=== PATIENT | female | born 1930 | race Caucasian/White ===

== ENCOUNTER 2016-12-03 23:46 | Inpatient (IN) | payer OTHER ==
--- NOTE | ~2016-12-03 | PRECARD ---
H&P [facility] [address] [place]. [address] NAME: TEODORA ALMAGUER : 34 STATUS : ADM IN [facility]#: [id number] AGE: 86 ADM/REG DATE : 12/03/16 MR#: [id number] REPORT SERV DATE: 12/04/16 DICTATED BY: MARANDA RUSSELL DATE: 12/04/16 REPORT STATUS : Draft TRANSCRIBED BY: MODKaiser DATE: 12/04/16 DATE OF ADMISSION: 12/03/2016 CARDIOLOGY ADMISSION NOTE CHIEF COMPLAINT: Chest pain. REASON FOR ADMISSION: Myocardial infarction. SOURCE: Patient and chart. HISTORY OF PRESENT ILLNESS: Ms. Almaguer is a very pleasant 86-year-old white woman with no significant past cardiac history. She was in her usual state of health until last night about 10 p.m. when she was watching TV and she developed chest pain described as a heavy burning sensation radiating to both arms, up to 10/10 in severity. She never had anything like it before. It was associated with nausea, diaphoresis, and shortness of breath, but no vomiting. She came to [facility] ER where she sustained VF arrest x2 and was promptly defibrillated. Following that, she was awake and alert. REVIEW OF SYSTEMS: All other systems are negative. ALLERGIES: DEMEROL. MEDICATIONS AT HOME: She has a list, but cannot remember them. CARDIAC RISK FACTORS: Hypertension, former tobacco. Denies diabetes, cholesterol, or family history. SOCIAL HISTORY: The patient lives in [place], [place]. She is . She has 3 children, alive and well. She is retired. FAMILY HISTORY: Negative for coronary artery disease at young age. PAST MEDICAL HISTORY: Significant for no prior heart disease, history of bleeding ulcer, history of asthma, status post tonsillectomy, status post appendectomy, status post hysterectomy, status post bilateral tubal ligation, a "kidney tie up" when her ureter was stretched during , status post right total knee replacement, status post gallbladder surgery, status post cataract surgery. PHYSICAL EXAMINATION: GENERAL: She is a well-developed, well-nourished, elderly white woman, in no acute distress. VITAL SIGNS: Stable. Afebrile. HEENT: Sclerae anicteric. Lips without cyanosis. Carotids 2+ and symmetrical. No JVD. No thyromegaly. H&P [facility] [address] [facility] [place]. [address] NAME: TEODORA ALMAGUER : 34 STATUS : ADM IN [facility]#: [id number] AGE: 86 ADM/REG DATE : 12/03/16 MR#: [id number] REPORT SERV DATE: 12/04/16 DICTATED BY: MARANDA RUSSELL DATE: 12/04/16 REPORT STATUS : Draft TRANSCRIBED BY: UMA DATE: 12/04/16 LUNGS: Clear to auscultation. No use of accessory muscles. HEART: Regular rate and rhythm without murmur, gallop, or rub. ABDOMEN: Positive bowel sounds. Soft, nontender. Healed surgical scars. EXTREMITIES: Pulses 2+ and symmetrical. No cyanosis or clubbing. Puffy legs. No pitting edema. BACK: No CVA tenderness. MUSCULOSKELETAL: Good tone. NEUROLOGIC: Alert and oriented x3. LABORATORY DATA: EKG reveals acute inferior TN, evidence of VF arrest. Labs are not yet available. IMPRESSION: 1. Acute inferior myocardial infarction, onset 10 p.m., by history, Killip class I. 2. Status post ventricular fibrillation arrest x2 in the ER. 3. Hypertension. 4. Former tobacco. RECOMMENDATIONS: 1. Emergent cardiac catheterization and angioplasty already done; see report. 2. IV amiodarone bolus. 3. Electrolyte replacement protocol complete database. 4. Aspirin, heparin already given. 5. Beta blockers and MADDY inhibitors. 6. Check fasting lipid profile. Empiric statin therapy. KIM/UMA Maranda Russell M.D. / [id number] CC: Thiago Brothers M.D.
--- NOTE | ~2016-12-03 | DS ---
Discharge Summary [facility] [address] [place]. [address] NAME: TEODORA CONTE : 34 STATUS : DIS IN PAT#: [id number] AGE: 86 ADM/REG DATE : 12/03/16 MR#: [id number] REPORT SERV DATE: 12/19/16 DICTATED BY: MARANDA RUSSELL DATE: 12/18/16 REPORT STATUS : Draft TRANSCRIBED BY: UMA DATE: 12/18/16 Data Collection from hospitalization DISCHARGE DIAGNOSES: 1. Inferior myocardial infarction-acute. 2. Mildly decreased left ventricular systolic function. 3. Status post ventricular fibrillation arrest. 4. Dyspnea. 5. History of chronic obstructive pulmonary disease. 6. Hypertension. 7. History of bleeding ulcer. 8. Coronary artery disease. 9. [id number] smoking history. CONSULTATION: Dr. Sendy Herrera. PROCEDURES PERFORMED: Cardiac catheterization and percutaneous coronary intervention, 12/04/2016. DISCHARGE MEDICATIONS: Halfprin 81 mg daily, Lipitor 40 mg at bedtime, Maximum D3 one capsule on Sundays as instructed, hydrochlorothiazide 12.5 mg daily, Singulair one tablet daily, Lopressor 25 mg twice a day, Zoloft 100 mg every morning, Spiriva one capsule via HandiHaler daily, Brilinta 90 mg every 12 hours, Diovan 320 mg every morning, ProAir one puff via inhaler every four hours as needed, Ativan 1 mg twice a day as needed, Lead 10/325 one tablet every six hours as needed, Cartia XT 180 mg daily, sleep aid [id number] one tablet at bedtime. CONDITION AT DISCHARGE: Stable. DISPOSITION: The patient was discharged to [facility] with diet and activities as instructed. She would follow up with me, 01/02/2017. HOSPITAL COURSE: This is an 86-year-old female, who has no significant past cardiac history. She had been in her usual state of health until around 10 p.m. on the night prior to this admission, when she was watching TV and developed chest pain, described as a heavy burning sensation, radiating to both arms that was up to 10/10 in severity. She had never had anything like this before. It was associated with nausea, diaphoresis, and shortness of breath, but no vomiting. She came to the [facility] emergency room, where she sustained ventricular fibrillation arrest x2 and was promptly defibrillated. She was admitted to the hospital at this time for further evaluation and treatment. Upon admission, her EKG revealed acute inferior myocardial infarction and evidence of ventricular fibrillation arrest. IV amiodarone bolus was given. She was placed on electrolyte replacement protocol. She was taken emergently to the cardiac medical lab assistant, where she underwent the above-mentioned procedure. She tolerated this well and there were no complications. The following day, she was up sitting in a chair. She was feeling okay. She had no chest pain, shortness of breath, or palpitations. She did have some sternal soreness at the defibrillation site. She was in a sinus rhythm. We encouraged her to Discharge Summary [address] [place]. [address] NAME: TEODORA CONTE : 34 STATUS : DIS IN PAT#: [id number] AGE: 86 ADM/REG DATE : 12/03/16 MR#: [id number] REPORT SERV DATE: 12/19/16 DICTATED BY: MARANDA RUSSELL DATE: 12/18/16 REPORT STATUS : Draft TRANSCRIBED BY: UMA DATE: 12/18/16 increase her activity. She was transferred to telemetry. O2 was discontinued. Blood pressure was under good control. Statin therapy continued. EKG revealed normal sinus rhythm with occasional PVCs. On the , she had not gotten out of the bed much over the last 24 hours, except to go to the bathroom. She said she felt weak. She had some shortness of breath and wheezing. Her chest wall was sore at the defibrillation site. She was in a sinus rhythm with PVCs. We encouraged her to increase her activity. She does have mildly decreased left ventricular systolic function. BNP level was going to be checked. She was seen in consultation by Dr. Sendy Herrera. Her postoperative recovery had been complicated by significant weakness and shortness of breath. The patient is mobile, living on her own. She now found this difficult to transfer from the bed to the bathroom. She had complained of some wheezing. White blood cell count was 10. There was a large amount of blood in the urine. Chest x-ray on 12/05/2016 had demonstrated mild right-sided basilar atelectasis and underlying cardiomegaly. There were no obvious signs of pneumonic infiltrate or congestive heart failure. She has a past medical history of remote tobacco use and asthma. She was going to go to rehab. In terms of her shortness of breath, it was felt this was likely due to her cardiac issues. Nonetheless, she most likely has underlying chronic obstructive pulmonary disease. Chest x-ray did not reveal a pneumonic process, such as pneumonia or signs of heart failure. She did have some minor subsegmental atelectasis. At this point, he recommended starting Dulera, Spiriva, and albuterol. Bedside spirometry would be performed. The patient complained of her voice being squeaky. If the patient's voice issues persist beyond three to four weeks, he recommended an outpatient ENT consult. Discharge planning was performed. On 12/07/2016, clonidine was given for blood pressure control. Her chest was still sore. She still had a cough. She was in a sinus rhythm. Discharge instructions were given. Valsartan was increased. Due to her improved and stable condition, she was discharged to [facility] with the above-stated instructions. Information collected by: Marychuy Avila I submit the above information as my discharge summary. TG/MODL Maranda Russell M.D. / [id number] CC: Thiaog Brothers M.D. [facility]
--- NOTE | ~2016-12-03 | CN ---
Consultation Report [facility] [address] [place]. [address] NAME: WILLEM ALMAGUER : 34 STATUS : ADM IN PAT#: [id number] AGE: 86 ADM/REG DATE : 12/03/16 MR#: [id number] REPORT SERV DATE: 12/06/16 DICTATED BY: SENDY SNEED DATE: 12/06/16 REPORT STATUS : Draft TRANSCRIBED BY: MODL DATE: 12/06/16 DATE OF CONSULTATION: Dear Dr. Ren: Thank you for requesting my opinion regarding evaluation and management of Ms. Willem Almaguer's presumed COPD. Ms. Almaguer is an extremely pleasant 86-year-old female with approximately a [id number] history and asthma, who presented to [facility] on 12/04/2016 with 10/10 chest pain, described as a heavy burning sensation, radiating to both arms and with associated symptoms of nausea, diaphoresis, and shortness of breath. The patient arrived at [facility] ER and had two ventricular fibrillation arrests and was promptly defibrillated with ROSC. The patient underwent emergent cardiac catheterization by Dr. Ernesto Ren. The patient was found to have two-vessel coronary artery disease including a 99% proximal RCA, mildly depressed LV systolic function with an EF of 45%, no significant mitral regurgitation. The patient underwent successful angioplasty with drug-eluting stent placement in the proximal RCA from 99% pre to 0% post and the ostial RCA from 75% pre to 0% post placement. The patient underwent placement of a 3.5 x 24 Synergy drug-eluting stent and a 4.0 x 24 Synergy drug-eluting stent, post dilated to 4 mm to 4.5 respectively with high-pressure balloons. The patient was recommended to be on Brilinta 90 mg p.o. b.i.d. for one year and aspirin indefinitely. During her course, her postoperative recovery has been complicated by significant weakness and shortness of breath. The patient is mobile, living on her own, and now finds it difficult to transfer from bed to the bathroom. I have been asked to optimize her medical status. She denies any fevers, chills, night sweats, nausea, vomiting, diarrhea, or constipation. She does complain of wheezes and a new "squeaky" voice. REVIEW OF SYSTEMS: A detailed 14-point review of systems was completed. Pertinent positives and negatives are listed above. PAST MEDICAL HISTORY: 1. Coronary artery disease, status post two drug-eluting stents. 2. History of bleeding ulcer. 3. Asthma. 4. [id number] smoking history. PAST SURGICAL HISTORY: 1. Tonsillectomy. 2. Appendectomy. 3. Hysterectomy. 4. Bilateral tubal ligation. 5. Kidney tie up? when her ureter was stretched during . 6. Right total knee replacement. 7. Cholecystectomy. 8. Cataract surgery. Consultation Report [address] [place]. [address] NAME: WILLEM ALMAGUER : 34 STATUS : ADM IN PAT#: [id number] AGE: 86 ADM/REG DATE : 12/03/16 MR#: [id number] REPORT SERV DATE: 12/06/16 DICTATED BY: SENDY SNEED DATE: 12/06/16 REPORT STATUS : Draft TRANSCRIBED BY: UMA DATE: 12/06/16 SOCIAL HISTORY: The patient lives in [place], [place]. Her primary care physician is Dr. Lopez. She is . She has three children, alive and well. One of her daughters is by her bedside. She is retired. FAMILY HISTORY: Negative for coronary artery disease. ALLERGIES: DEMEROL. HOME MEDICATIONS: Reviewed and located in the paper chart. PHYSICAL EXAMINATION: VITAL SIGNS: Afebrile, T-current of 97.3, pulse of 78, respiratory rate 20, room air 100%. GENERAL: No acute distress. Able to communicate in full paragraphs at a time. Somewhat of a squeaky voice, intermittently reversed to normal. HEENT: Normocephalic and atraumatic. Pupils are equal, round, and reactive to light and accommodation. Posterior oropharynx is clear. NECK: No JVD. No LAD. Trachea midline. CARDIOVASCULAR: Regular rate and rhythm. S1 and S2 present. LUNGS: Coarse bilateral breath sounds with end-expiratory wheezes on forced expiration. Frequent coughing fits. ABDOMEN: Nontender, nondistended, soft. Positive bowel sounds. EXTREMITIES: No clubbing, cyanosis, or edema. SKIN: No new rashes, lesions, or ulcers. PSYCHIATRIC: Alert and oriented x3. Appropriate mood and affect. Appropriate insight and judgment. NEUROLOGIC: 5/5 strength in upper and lower extremities. Cranial nerves 2 through 12 intact. Gait not tested. DTRs not performed. LABORATORY DATA: White count of 10, down from 13; hemoglobin of 12; platelet count of 144. Chemistries demonstrate a creatinine of 1.07. Peak troponin of 31. Large blood in the urine. IMAGING: Chest x-ray on 12/05/2016 demonstrates mild right-sided basilar atelectasis and underlying cardiomegaly. No obvious signs of pneumonic infiltrate or CHF. This chest x-ray was personally reviewed by me and I agree with the above interpretation. ASSESSMENT AND PLAN: Ms. Willem Almaguer is an extremely pleasant 86-year-old female with a significant past medical history of remote tobacco abuse and asthma, who presented to [facility] with severe chest pain and ventricular fibrillation arrest x2 in the emergency room, status post emergent cardiac catheterization demonstrating two-vessel disease, status post two drug-eluting stents to the RCA and ostial RCA with excellent flow. The patient's postoperative course has been complicated by persistent shortness of breath and weakness. The patient is scheduled to go to rehab and in terms of her shortness of Consultation Report [address] [place]. [address] NAME: WILLEM ALMAGUER : 34 STATUS : [facility]M [facility]#: [id number] AGE: 86 ADM/REG DATE : 12/03/16 MR#: [id number] REPORT SERV DATE: 12/06/16 DICTATED BY: SENDY SNEED DATE: 12/06/16 REPORT STATUS : Draft TRANSCRIBED BY: MODL DATE: 12/06/16 breath, it is likely due to her cardiac issues. Nonetheless, she most likely has underlying chronic obstructive pulmonary disease. Chest x-ray did not reveal a pneumonic process such as a pneumonia or signs of heart failure. She did have some minor subsegmental atelectasis. At this point, I recommend the followin. Start Dulera, Spiriva, and albuterol p.r.n. 2. Home medications will include Symbicort 160/4.5 two puffs b.i.d., Spiriva one puff daily, and albuterol p.r.n. both MDI and nebulization therapy. 3. Bedside spirometry. 4. The patient is to follow up with Dr. Isrrael Nicole at the [facility]. 5. I doubt the patient has an active chronic obstructive pulmonary disease exacerbation. 6. If the patient's voice issues persist beyond three to four weeks, I recommend an outpatient ENT consultation. The patient has been advised and understood. Thank you for allowing me to participate in Ms. Almaguer's care. LINUS/ZEKEL Sendy Sneed M.D. / [id number] CC: Thiago Brothers M.D.
[~2016-12-03 23:46] MED LIST: ATV1 PO; COMBIVENT INHAL15 GM INH; DIOV80 PO; DIOVAN320 MG PO; HALF81 PO; KETOPROFEN200 MG PO; LORTAB10 PO; MAXIMUM D3; MAXIMUM D3 PO; MSCONT15 PO; PAX10 PO; PROAIR HFA INH; SINGULAIR1 PO; ZOL100 PO; ZOL50 PO
[2016-12-04] LABS: BASOPHILS 0.3 %; BASOPHILS ABSOLUTE 0.03 10/3/uL (0.0-0.16); EOSINOPHILS 2.1 %; EOSINOPHILS ABSOLUTE 0.24 10/3/uL (0.0-0.53); IMMATURE GRANULOCYTES 0.3 %; IMMATURE GRANULOCYTES ABSOLUTE 0.04 10/3/uL (0.0-0.11); LYMPHOCYTES 29.2 %; LYMPHOCYTES ABSOLUTE 3.39 10/3/uL (0.67-4.30); MEAN CORPUSCULAR HEMOGLOB 30.8 pg (26.0-34.0); MEAN CORPUSCULAR VOLUME 89.7 fL (80-100); MEAN PLATELET VOLUME 10.4 fL (9.2-13.0); MONOCYTES 9.1 %; MONOCYTES ABSOLUTE 1.06 10/3/uL (0.21-1.20); NEUTROPHILS ABSOLUTE 6.83 10/3/uL (2.02-8.40); PLATELET COUNT 210 10/3/uL (150-400); RBC DISTRIBUTION WIDTH 13.8 % (12.0-16.0); WHITE BLOOD CELLS 11.6 10/3/uL (4.5-10.5)
[2016-12-04 00:02] LABS: HEMATOCRIT 47.2 % (36.0-48.0); HEMOGLOBIN 16.2 g/dL (12.0-16.0); MANUAL DIFF NO %; MEAN CORPUS HGB CONC 34.3 g/dL (32.0-36.0); RED CELL COUNT 5.26 10/6/uL (4.0-5.6)
[2016-12-04 00:08] LABS: PARTIAL THROMBO TIME 27.6 SEC (22.5-37.2); PROTIME (NOT ORD) 13.4 SEC (12.0-14.5)
[2016-12-04 00:22] LABS: CHLORIDE, SERUM 103 MMOL/L (96-112); CO2 (CARBON DIOXIDE) 31 MMOL/L (24-34); CREATININE 1.21 MG/DL (0.55-1.02); GFR AFRICAN AMERICAN 48 ML/MIN (>=60); GFR NON AFRICAN AMERICAN 41 ML/MIN (>=60); SODIUM, SERUM 139 MMOL/L (135-148)
[2016-12-04 00:26] LABS: BUN (BLOOD UREA NITROGEN) 27 MG/DL (6-23); CALCIUM, SERUM 11.1 MG/DL (8.5-10.4); GLUCOSE, SERUM 162 MG/DL (60-99); POTASSIUM, SERUM 3.6 MMOL/L (3.5-5.3)
[2016-12-04 00:27] LABS: TROPONIN I 0.18 NG/ML (<0.05)
[2016-12-04 00:28] LABS: CHEST PAIN PROFILE TAT 0 Hrs 31 Mins
[2016-12-04 04:42] LABS: WBC (NOT ORDERED) (RFLEX) 0 (0-5)
[2016-12-04] MEDS ORDERED: HYDROCHLOROT12.5 MG PO (05:01)
[2016-12-04] MEDS ORDERED: ATV1 PO (05:03)
[2016-12-04] MEDS ORDERED: SINGULAIR1 PO (05:03)
[2016-12-04] MEDS ORDERED: NORCO1 TAB PO (05:06)
[2016-12-04 05:36] LABS: ASCORBIC ACID (UR NOT ORDER) NEG (NEG); BILIRUBIN, URINE NEGATIVE (NEG); KETONE, URINE NEGATIVE (NEG); LEUKOCYTE ESTERASE(NOT OR NEG (NEG)
[2016-12-04 06:18] LABS: BUN (BLOOD UREA NITROGEN) 23 MG/DL (6-23); CALCIUM, SERUM 10.5 MG/DL (8.5-10.4); CHLORIDE, SERUM 104 MMOL/L (96-112); CHOL/HDL RATIO(NOT ORDER) 3.4 (0-5); CHOLESTEROL 202 MG/DL (< 200); CK-MB 85.7 NG/ML; CKMB INDEX (NOT ORD) 15.4; CO2 (CARBON DIOXIDE) 29 MMOL/L (24-34); CPK 555 U/L (0-200); CREATININE 1.09 MG/DL (0.55-1.02); GFR AFRICAN AMERICAN 54 ML/MIN (>=60); GFR NON AFRICAN AMERICAN 47 ML/MIN (>=60); GLUCOSE, SERUM 163 MG/DL (60-99); HDL CHOLESTEROL 60 MG/DL (> 49); LDL CHOLESTEROL 121 MG/DL (< 130); NON-HDL CHOLESTEROL 142 MG/DL (< 160); POTASSIUM, SERUM 4.4 MMOL/L (3.5-5.3); SODIUM, SERUM 138 MMOL/L (135-148); TRIGLYCERIDE 105 MG/DL (< 150)
[2016-12-04 06:24] LABS: BASOPHILS 0.2 %; BASOPHILS ABSOLUTE 0.03 10/3/uL (0.0-0.16); EOSINOPHILS 0.1 %; EOSINOPHILS ABSOLUTE 0.01 10/3/uL (0.0-0.53); HEMOGLOBIN 14.2 g/dL (12.0-16.0); IMMATURE GRANULOCYTES 0.2 %; IMMATURE GRANULOCYTES ABSOLUTE 0.03 10/3/uL (0.0-0.11); LYMPHOCYTES 4.3 %; LYMPHOCYTES ABSOLUTE 0.58 10/3/uL (0.67-4.30); MEAN CORPUSCULAR HEMOGLOB 30.4 pg (26.0-34.0); MEAN CORPUSCULAR VOLUME 89.5 fL (80-100); MEAN PLATELET VOLUME 10.5 fL (9.2-13.0); MONOCYTES 4.9 %; MONOCYTES ABSOLUTE 0.66 10/3/uL (0.21-1.20); NEUTROPHILS 90.3 %; NEUTROPHILS ABSOLUTE 12.05 10/3/uL (2.02-8.40); PLATELET COUNT 171 10/3/uL (150-400); RBC DISTRIBUTION WIDTH 13.8 % (12.0-16.0); RED CELL COUNT 4.67 10/6/uL (4.0-5.6); WHITE BLOOD CELLS 13.4 10/3/uL (4.5-10.5)
[2016-12-04 06:25] LABS: HEMATOCRIT 41.8 % (36.0-48.0); MANUAL DIFF NO %
[2016-12-04 07:19] LABS: PHOSPHORUS, SERUM 2.1 MG/DL (2.5-4.5)
[2016-12-04 10:26] LABS: CKMB INDEX (NOT ORD) 14.4
[2016-12-04] MEDS ORDERED: SLEEP AID OTC PO (12:15)
[2016-12-04] MEDS ORDERED: CARTIA XT180 MG/24 PO (12:15)
[2016-12-04 13:05] LABS: HEMATOCRIT 39.6 % (36.0-48.0); HEMOGLOBIN 13.5 g/dL (12.0-16.0)
[2016-12-04 17:36] LABS: CK-MB 60.7 NG/ML
[2016-12-04 17:38] LABS: CKMB INDEX (NOT ORD) 11.4; TROPONIN I 31.5 NG/ML (<0.05)
[2016-12-04 22:04] LABS: CK-MB 41.6 NG/ML
[2016-12-04 22:07] LABS: CKMB INDEX (NOT ORD) 9.2
[2016-12-05 06:10] LABS: BASOPHILS 0.1 %; BASOPHILS ABSOLUTE 0.01 10/3/uL (0.0-0.16); EOSINOPHILS 0.8 %; EOSINOPHILS ABSOLUTE 0.09 10/3/uL (0.0-0.53); HEMATOCRIT 38.3 % (36.0-48.0); HEMOGLOBIN 12.8 g/dL (12.0-16.0); IMMATURE GRANULOCYTES 0.3 %; IMMATURE GRANULOCYTES ABSOLUTE 0.03 10/3/uL (0.0-0.11); LYMPHOCYTES 9.1 %; LYMPHOCYTES ABSOLUTE 0.98 10/3/uL (0.67-4.30); MEAN CORPUS HGB CONC 33.4 g/dL (32.0-36.0); MEAN CORPUSCULAR HEMOGLOB 29.8 pg (26.0-34.0); MEAN CORPUSCULAR VOLUME 89.1 fL (80-100); MEAN PLATELET VOLUME 10.6 fL (9.2-13.0); MONOCYTES 11.4 %; MONOCYTES ABSOLUTE 1.22 10/3/uL (0.21-1.20); NEUTROPHILS 78.3 %; NEUTROPHILS ABSOLUTE 8.41 10/3/uL (2.02-8.40); PLATELET COUNT 144 10/3/uL (150-400); RBC DISTRIBUTION WIDTH 14.2 % (12.0-16.0); WHITE BLOOD CELLS 10.7 10/3/uL (4.5-10.5)
[2016-12-05 06:13] LABS: MANUAL DIFF NO %
[2016-12-05 06:29] LABS: CHLORIDE, SERUM 108 MMOL/L (96-112); CK-MB 26.2 NG/ML; CO2 (CARBON DIOXIDE) 28 MMOL/L (24-34); CREATININE 1.07 MG/DL (0.55-1.02); GFR AFRICAN AMERICAN 55 ML/MIN (>=60); GFR NON AFRICAN AMERICAN 48 ML/MIN (>=60); POTASSIUM, SERUM 3.8 MMOL/L (3.5-5.3); SODIUM, SERUM 143 MMOL/L (135-148)
[2016-12-05 06:30] LABS: BUN (BLOOD UREA NITROGEN) 19 MG/DL (6-23); CKMB INDEX (NOT ORD) 7.6; CPK 345 U/L (0-200); GLUCOSE, SERUM 116 MG/DL (60-99)
[2016-12-06 13:30] LABS: BUN (BLOOD UREA NITROGEN) 23 MG/DL (6-23); CALCIUM, SERUM 11.2 MG/DL (8.5-10.4); CHLORIDE, SERUM 106 MMOL/L (96-112); CO2 (CARBON DIOXIDE) 24 MMOL/L (24-34); CREATININE 0.99 MG/DL (0.55-1.02); GFR AFRICAN AMERICAN 61 ML/MIN (>=60); GFR NON AFRICAN AMERICAN 52 ML/MIN (>=60); GLUCOSE, SERUM 112 MG/DL (60-99); SODIUM, SERUM 139 MMOL/L (135-148)
[2017-04-03] MEDS ORDERED: INCRUSE ELLI62.5 MCG INH (16:25)
[2017-04-03] MEDS ORDERED: PLAVIX PO (16:27)
[2017-04-03] MEDS ORDERED: DSS PO (16:52)
[2017-04-03] MEDS ORDERED: COMBIVENT RESPIM4 GM INH (16:53)
[2017-04-03] MEDS ORDERED: CELEBREX2 PO (16:53)
[2017-04-03] MEDS ORDERED: COREG12 PO (16:54)
[2017-04-03] MEDS ORDERED: BREO ELLIPTA 21 EACH INH (16:54)
[2017-04-03] MEDS ORDERED: NORV25 PO (16:55)
[2017-04-03] MEDS ORDERED: LIPITOR40 PO (16:55)
[2017-04-03] MEDS ORDERED: ALBUTEROL0.083 % INH (16:56)
== END 2016-12-07 16:49 | DRG 246 ==
LOC: ER 23:46 → SSU2 23:50 → CCU 12-04 01:46 → 7NO 12-05 09:35
PROVIDERS: Emergency Medicine; Internal Medicine Cardiovascular Disease
PROC: 4A023N7 Measurement of Cardiac Sampling and Pressure, Left Heart, Percutaneous Approach (ICD-10-PCS; principal; 2016-12-04)
PROC: 027035Z Dilation of Coronary Artery, One Artery with Two Drug-eluting Intraluminal Devices, Percutaneous Approach (ICD-10-PCS; 2016-12-04)
PROC: B2111ZZ Fluoroscopy of Multiple Coronary Arteries using Low Osmolar Contrast (ICD-10-PCS; 2016-12-04)
PROC: B2151ZZ Fluoroscopy of Left Heart using Low Osmolar Contrast (ICD-10-PCS; 2016-12-04)
DX: I21.19 ST elevation (STEMI) myocardial infarction involving other coronary artery of inferior wall (principal); I49.01 Ventricular fibrillation; J44.9 Chronic obstructive pulmonary disease, unspecified; I10 Essential (primary) hypertension; Z87.891 Personal history of nicotine dependence
CPT/HCPCS: 71010; 71020; 80048; 80061; 81001; 82550; 82553; 83735; 83880; 84100; 84484; 85014; 85018; 85025; 85347; 85610; 85730; 87641; 92950; 93005; 93458; 94640; 97161-GP; 99291; A9270-GY; C1725; C1760; C1769; C1874; C1887; C1894; C9606; J0282; J0583; J2250; J3010; J3475; Q9967